=== PATIENT | male | born 1995 | race African-American/Black ===

== ENCOUNTER 2017-01-08 10:39 | Emergency (ER) | payer SELFPAY ==
[~2017-01-08] VITALS: Ht 172.7 cm; Wt 93.0 kg
[~2017-01-08 10:39] MED LIST: PRED50 PO; RANI300T PO
[2017-01-08 10:44] VITALS: BP 133/74; PULSE 65; RESP 14; TEMP 98.2; O2SAT 98
--- NOTE | 2017-01-08 11:09 | PD ---
Physical Exam Time Seen by Provider: 11:08 Narrative 21 y/o male with 2 days chest pain. He also notes hematuria which started today. Vital signs reviewed. Seen at triage desk. Awaiting bed placement. Data Data Last Documented VS Vital Signs Date Time Temp Pulse Resp B/P Pulse Ox O2 Delivery O2 Flow Rate FiO2 01/08/17 10:44 98.2 65 14 133/74 98 MDM Medical Record Reviewed: Yes Supervised Visit with RUDI: Lev Vo Jan 08, 2017 11:08
[2017-01-08 12:56] LABS: BLOOD, URINE NEG (NEG); GLUCOSE,URINE NEG (NEG); KETONE, URINE NEG (NEG); NITRITE,URINE NEG (NEG); PH, URINE 7.5 (5.0-8.5); URINE COLOR LIGHT-YELLOW (YELLW/STRAW)
[2017-01-08 13:10] LABS: COMMENT (UR) CULT NOT INDICATED; CULTURE IF INDICATED CULT NOT INDICATED
[2017-01-08] MEDS ORDERED: SODIUM CHLOR 0.9% 1000 ML INJ 1,000 ML IV ONE (13:45)
[2017-01-08] MEDS ORDERED: SODIUM CHLORIDE 0.9% FLUSH 10 ML FLUSH IVF PRN (13:45)
--- NOTE | 2017-01-08 13:50 | PD ---
HPI Chief Complaint: Chest Pain Time Seen by Provider: 13:39 Travel History International Travel<30 days: No Contact w/Intl Traveler<30days: No Traveled to known affect area: No History of Present Illness HPI Patient is a 21-year-old male who presents to emergency room with complaints of chest pain. Patient reports that he was lying in bed this morning and began to have right-sided sharp and stabbing pain to his chest. Patient reports that the pain feels pleuritic in nature, reports that chest pain was worse with deep inspiration. Patient denies any diaphoresis, nausea or vomiting or radiation of pain. Patient reports the pain is located to his right chest, reports that the pain resolved after 20 minutes on its own. Patient denies any recent illnesses, denies any drug abuse. Patient is a nonsmoker. No family history of early coronary disease or [place]. Patient with no recent travels or trips. Patient with no risk factors for CAD. Denies history of PE or DVT. PFSH Past Medical History Medical History: Denies Significant Hx Diminished Hearing: No Past Surgical History Other Surgery: Yes (cyst removal from throat) Family History Family History: Negative Social History Alcohol Use: No Tobacco Use: No Substance Use: No Allergies-Medications (Allergen,Severity, Reaction): Coded Allergies: No Known Allergies (Unverified , 01/08/17) Reported Meds & Prescriptions Reported Meds & Active Scripts Active No Active Prescriptions or Reported Medications Review of Systems General / Constitutional: No: Fever Eyes: No: Visual changes HENT: No: Headaches Cardiovascular: Positive: Chest Pain or Discomfort Respiratory: Positive: Shortness of Breath Gastrointestinal: No: Abdominal Pain Genitourinary: No: Dysuria Musculoskeletal: No: Pain Skin: No Rash Neurologic: No: Weakness Psychiatric: No: Depression Endocrine: No: Polydipsia Hematologic/Lymphatic: No: Easy Bruising Physical Exam Narrative GENERAL: nad, nontoxic SKIN: Focused skin assessment warm/dry. HEAD: Atraumatic. Normocephalic. EYES: Pupils equal and round. No scleral icterus. No injection or drainage. ENT: No nasal bleeding or discharge. Mucous membranes pink and moist. NECK: Trachea midline. No JVD. CARDIOVASCULAR: Regular rate and rhythm. No murmur appreciated. RESPIRATORY: No accessory muscle use. Clear to auscultation. Breath sounds equal bilaterally. GASTROINTESTINAL: Abdomen soft, non-tender, nondistended. Hepatic and splenic margins not palpable. MUSCULOSKELETAL: No obvious deformities. No clubbing. No cyanosis. No edema. NEUROLOGICAL: Awake and alert. No obvious cranial nerve deficits. Motor grossly within normal limits. Normal speech. PSYCHIATRIC: Appropriate mood and affect; insight and judgment normal. Data Data Last Documented VS Vital Signs Date Time Temp Pulse Resp B/P Pulse Ox O2 Delivery O2 Flow Rate FiO2 01/08/17 14:07 100 Room Air 01/08/17 13:35 52 01/08/17 10:44 98.2 14 Orders Urinalysis - C+S If Indicated (01/08/17 11:09) Electrocardiogram (01/08/17 ) Ckmb (Isoenzyme) Profile (01/08/17 13:45) Complete Blood Count With Diff (01/08/17 13:45) Comprehensive Metabolic Panel (01/08/17 13:45) D-Dimer (01/08/17 13:45) Magnesium (Mg) (01/08/17 13:45) Prothrombin Time / Inr (Pt) (01/08/17 13:45) Act Partial Throm Time (Ptt) (01/08/17 13:45) Troponin I (01/08/17 13:45) Lipase (01/08/17 13:45) Chest, Single Ap (01/08/17 13:45) Ecg Monitoring (01/08/17 13:45) Iv Access Insert/Monitor (01/08/17 13:45) Oximetry (01/08/17 13:45) Sodium Chloride 0.9% Flush (Ns Flush) (01/08/17 13:45) Thyroid Stimulating Hormone (01/08/17 13:45) Sodium Chlor 0.9% 1000 Ml Inj (Ns 1000 M (01/08/17 13:45) Drug Screen, Random Urine (01/08/17 13:57) CKMB (01/08/17 13:50) CKMB% (01/08/17 13:50) Electrocardiogram (01/08/17 ) Labs Laboratory Tests Test 01/08/17 01/08/17 12:25 13:50 Urine Color LIGHT-YELLOW Urine Turbidity CLEAR Urine pH 7.5 Urine Specific [place] 1.014 Urine Protein NEG mg/dL Urine Glucose (UA) NEG mg/dL Urine Ketones NEG mg/dL Urine Occult Blood NEG Urine Nitrite NEG Urine Bilirubin NEG Urine Urobilinogen LESS THAN 2.0 MG/DL Urine Leukocyte Esterase NEG Urine RBC 1 /hpf Urine WBC 2 /hpf Microscopic Urinalysis Comment CULT NOT INDICATED White Blood Count 4.5 TH/MM3 Red Blood Count 5.47 MIL/MM3 Hemoglobin 14.4 GM/DL Hematocrit 44.0 % Mean Corpuscular Volume 80.4 FL Mean Corpuscular Hemoglobin 26.3 PG Mean Corpuscular Hemoglobin 32.7 % Concent Red Cell Distribution Width 13.6 % Platelet Count 199 TH/MM3 Mean Platelet Volume 8.2 FL Neutrophils (%) (Auto) 45.0 % Lymphocytes (%) (Auto) 43.8 % Monocytes (%) (Auto) 7.8 % Eosinophils (%) (Auto) 2.8 % Basophils (%) (Auto) 0.6 % Neutrophils # (Auto) 2.0 TH/MM3 Lymphocytes # (Auto) 2.0 TH/MM3 Monocytes # (Auto) 0.3 TH/MM3 Eosinophils # (Auto) 0.1 TH/MM3 Basophils # (Auto) 0.0 TH/MM3 CBC Comment DIFF FINAL Differential Comment Prothrombin Time 11.0 SEC Prothromb Time International 1.0 RATIO Ratio Activated Partial 29.6 SEC Thromboplast Time D-Dimer Quantitative (PE/DVT) 0.23 MG/L FEU Sodium Level 138 MEQ/L Potassium Level 3.6 MEQ/L Chloride Level 102 MEQ/L Carbon Dioxide Level 30.5 MEQ/L Anion Gap 6 MEQ/L Blood Urea Nitrogen 8 MG/DL Creatinine 1.10 MG/DL Estimat Glomerular Filtration 101 ML/MIN Rate Random Glucose 84 MG/DL Calcium Level 9.1 MG/DL Magnesium Level 2.1 MG/DL Total Bilirubin 0.4 MG/DL Aspartate Amino Transf 22 U/L (AST/SGOT) Alanine Aminotransferase 24 U/L (ALT/SGPT) Alkaline Phosphatase 65 U/L Total Creatine Kinase 218 U/L Creatine Kinase MB 0.8 NG/ML Troponin I LESS THAN 0.02 NG/ML Total Protein 7.8 GM/DL Albumin 4.0 GM/DL Lipase 82 U/L Thyroid Stimulating Hormone 1.310 uIU/ML 3rd Gen [facility] Medical Decision Making Medical Screen Exam Complete: Yes Emergency Medical Condition: Yes Interpretation(s) EKG at 1114: Sinus bradycardia at 51bpm, qt/qtc: 394/370, diffuse st seg elevation - most likely related to early repolarization repeat ekg at 1543: Sinus laci at 47bpm, qt/qtc: 422/383, early repolarization, no change from prior ekg's Vital Signs Date Time Temp Pulse Resp B/P Pulse Ox O2 Delivery O2 Flow Rate FiO2 01/08/17 13:35 52 98 Room Air 01/08/17 10:44 98.2 65 14 133/74 98 Vital Signs Date Time Temp Pulse Resp B/P Pulse Ox O2 Delivery O2 Flow Rate FiO2 01/08/17 14:07 100 Room Air 01/08/17 13:35 52 98 Room Air 01/08/17 10:44 98.2 65 14 133/74 98 Laboratory Tests Test 01/08/17 01/08/17 12:25 13:50 Urine Color LIGHT-YELLOW (YELLW/STRAW) Urine Turbidity CLEAR (CLEAR) Urine pH 7.5 (5.0-8.5) Urine Specific [place] 1.014 (1.002-1.035) Urine Protein NEG mg/dL (NEG-TRACE) Urine Glucose (UA) NEG mg/dL (NEG) Urine Ketones NEG mg/dL (NEG) Urine Occult Blood NEG (NEG) Urine Nitrite NEG (NEG) Urine Bilirubin NEG (NEG) Urine Urobilinogen LESS THAN 2.0 MG/DL (LESS THAN 2.0) Urine Leukocyte Esterase NEG (NEG) Urine RBC 1 /hpf (0-3) Urine WBC 2 /hpf (0-5) Microscopic Urinalysis Comment CULT NOT INDICATED White Blood Count 4.5 TH/MM3 (4.0-11.0) Red Blood Count 5.47 MIL/MM3 (4.50-5.90) Hemoglobin 14.4 GM/DL (13.0-17.0) Hematocrit 44.0 % (39.0-51.0) Mean Corpuscular Volume 80.4 FL (80.0-100.0) Mean Corpuscular Hemoglobin 26.3 PG (27.0-34.0) Mean Corpuscular Hemoglobin 32.7 % Concent (32.0-36.0) Red Cell Distribution Width 13.6 % (11.6-17.2) Platelet Count 199 TH/MM3 (150-450) Mean Platelet Volume 8.2 FL (7.0-11.0) Neutrophils (%) (Auto) 45.0 % (16.0-70.0) Lymphocytes (%) (Auto) 43.8 % (9.0-44.0) Monocytes (%) (Auto) 7.8 % (0.0-8.0) Eosinophils (%) (Auto) 2.8 % (0.0-4.0) Basophils (%) (Auto) 0.6 % (0.0-2.0) Neutrophils # (Auto) 2.0 TH/MM3 (1.8-7.7) Lymphocytes # (Auto) 2.0 TH/MM3 (1.0-4.8) Monocytes # (Auto) 0.3 TH/MM3 (0-0.9) Eosinophils # (Auto) 0.1 TH/MM3 (0-0.4) Basophils # (Auto) 0.0 TH/MM3 (0-0.2) CBC Comment DIFF FINAL Differential Comment Prothrombin Time 11.0 SEC (9.8-11.6) Prothromb Time International 1.0 RATIO Ratio Activated Partial 29.6 SEC Thromboplast Time (24.3-30.1) D-Dimer Quantitative (PE/DVT) 0.23 MG/L FEU (0.00-0.50) Sodium Level 138 MEQ/L (136-145) Potassium Level 3.6 MEQ/L (3.5-5.1) Chloride Level 102 MEQ/L (98-107) Carbon Dioxide Level 30.5 MEQ/L (21.0-32.0) Anion Gap 6 MEQ/L (5-15) Blood Urea Nitrogen 8 MG/DL (7-18) Creatinine 1.10 MG/DL (0.60-1.30) Estimat Glomerular Filtration 101 ML/MIN Rate (>89) Random Glucose 84 MG/DL (74-106) Calcium Level 9.1 MG/DL (8.5-10.1) Magnesium Level 2.1 MG/DL (1.5-2.5) Total Bilirubin 0.4 MG/DL (0.2-1.0) Aspartate Amino Transf 22 U/L (15-37) (AST/SGOT) Alanine Aminotransferase 24 U/L (12-78) (ALT/SGPT) Alkaline Phosphatase 65 U/L (45-117) Total Creatine Kinase 218 U/L (39-308) Creatine Kinase MB 0.8 NG/ML (0.5-3.6) Troponin I LESS THAN 0.02 NG/ML (0.02-0.05) Total Protein 7.8 GM/DL (6.4-8.2) Albumin 4.0 GM/DL (3.4-5.0) Lipase 82 U/L (73-393) Thyroid Stimulating Hormone 1.310 uIU/ML 3rd Gen (0.358-3.740) Last Impressions Chest X-Ray 01/08/17 1345 Signed Impressions: Service Date/Time: Sunday, January 08, 2017 13:49 - CONCLUSION: No acute disease. Barrett Whiteside MD Differential Diagnosis Differential includes ACS, arrhythmia, endocarditis though unlikely as patient denies drug abuse, pericarditis, PE, pneumothorax Narrative Course 21-year-old male who presents to emergency room with complaints of chest pain. Patient reports that chest pain began earlier this morning while in bed, reports that he had a sharp/ stabbing pain to his right chest. Patient reports that the chest pain lasted for about 15-20 minutes and resolved on its own. Reports that he has had similar symptoms in the past, reports that he was told that everything looked fine except for he does have an abnormal-appearing EKG which always says "I am having a heart attack when i'm not having one." Patient with complete resolution of chest pain at this time. Patient denies any drug abuse, denies any recent illnesses, patient asymptomatic. Vital Signs Date Time Temp Pulse Resp B/P Pulse Ox O2 Delivery O2 Flow Rate FiO2 01/08/17 13:35 52 98 Room Air 01/08/17 10:44 98.2 65 14 133/74 98 Vital signs reviewed, vital signs stable. EKG with early repolarization, plan to obtain basic blood work, will obtain one set of cardiac enzymes to rule out etiology for chest plain including but not limited to diagnosis of pericarditis or endocarditis. D-dimer ordered to rule out possible PE. TSH as well as xray of chest ordered as well. Will continue to monitor patient on library monitor Laboratory Tests Test 01/08/17 01/08/17 12:25 13:50 Urine Color LIGHT-YELLOW (YELLW/STRAW) Urine Turbidity CLEAR (CLEAR) Urine pH 7.5 (5.0-8.5) Urine Specific [place] 1.014 (1.002-1.035) Urine Protein NEG mg/dL (NEG-TRACE) Urine Glucose (UA) NEG mg/dL (NEG) Urine Ketones NEG mg/dL (NEG) Urine Occult Blood NEG (NEG) Urine Nitrite NEG (NEG) Urine Bilirubin NEG (NEG) Urine Urobilinogen LESS THAN 2.0 MG/DL (LESS THAN 2.0) Urine Leukocyte Esterase NEG (NEG) Urine RBC 1 /hpf (0-3) Urine WBC 2 /hpf (0-5) Microscopic Urinalysis Comment CULT NOT INDICATED White Blood Count 4.5 TH/MM3 (4.0-11.0) Red Blood Count 5.47 MIL/MM3 (4.50-5.90) Hemoglobin 14.4 GM/DL (13.0-17.0) Hematocrit 44.0 % (39.0-51.0) Mean Corpuscular Volume 80.4 FL (80.0-100.0) Mean Corpuscular Hemoglobin 26.3 PG (27.0-34.0) Mean Corpuscular Hemoglobin 32.7 % Concent (32.0-36.0) Red Cell Distribution Width 13.6 % (11.6-17.2) Platelet Count 199 TH/MM3 (150-450) Mean Platelet Volume 8.2 FL (7.0-11.0) Neutrophils (%) (Auto) 45.0 % (16.0-70.0) Lymphocytes (%) (Auto) 43.8 % (9.0-44.0) Monocytes (%) (Auto) 7.8 % (0.0-8.0) Eosinophils (%) (Auto) 2.8 % (0.0-4.0) Basophils (%) (Auto) 0.6 % (0.0-2.0) Neutrophils # (Auto) 2.0 TH/MM3 (1.8-7.7) Lymphocytes # (Auto) 2.0 TH/MM3 (1.0-4.8) Monocytes # (Auto) 0.3 TH/MM3 (0-0.9) Eosinophils # (Auto) 0.1 TH/MM3 (0-0.4) Basophils # (Auto) 0.0 TH/MM3 (0-0.2) CBC Comment DIFF FINAL Differential Comment Prothrombin Time 11.0 SEC (9.8-11.6) Prothromb Time International 1.0 RATIO Ratio Activated Partial 29.6 SEC Thromboplast Time (24.3-30.1) D-Dimer Quantitative (PE/DVT) 0.23 MG/L FEU (0.00-0.50) Sodium Level 138 MEQ/L (136-145) Potassium Level 3.6 MEQ/L (3.5-5.1) Chloride Level 102 MEQ/L (98-107) Carbon Dioxide Level 30.5 MEQ/L (21.0-32.0) Anion Gap 6 MEQ/L (5-15) Blood Urea Nitrogen 8 MG/DL (7-18) Creatinine 1.10 MG/DL (0.60-1.30) Estimat Glomerular Filtration 101 ML/MIN Rate (>89) Random Glucose 84 MG/DL (74-106) Calcium Level 9.1 MG/DL (8.5-10.1) Magnesium Level 2.1 MG/DL (1.5-2.5) Total Bilirubin 0.4 MG/DL (0.2-1.0) Aspartate Amino Transf 22 U/L (15-37) (AST/SGOT) Alanine Aminotransferase 24 U/L (12-78) (ALT/SGPT) Alkaline Phosphatase 65 U/L (45-117) Total Creatine Kinase 218 U/L (39-308) Creatine Kinase MB 0.8 NG/ML (0.5-3.6) Troponin I LESS THAN 0.02 NG/ML (0.02-0.05) Total Protein 7.8 GM/DL (6.4-8.2) Albumin 4.0 GM/DL (3.4-5.0) Lipase 82 U/L (73-393) Thyroid Stimulating Hormone 1.310 uIU/ML 3rd Gen (0.358-3.740) Last Impressions Chest X-Ray 01/08/17 1345 Signed Impressions: Service Date/Time: Sunday, January 08, 2017 13:49 - CONCLUSION: No acute disease. Barrett Whiteside MD Patient re-evaluated. Patient feeling much better at this time. Patient asymptomatic. Repeat EKG with early repolarization. Patient with a heart score of 0 patient will follow up with his pcp as outpatient and will return to ER as needed. Diagnosis Primary Impression: Chest pain Qualified Code: R07.9 - Chest pain, unspecified type Additional Impression: Costochondritis Patient Instructions: General Instructions Additional Instructions: Please follow-up with your primary care doctor Return to the emergency room as needed Return to the emergency room if symptoms worsen or return Scripts No Active Prescriptions or Reported Meds Disposition: 01 DISCHARGE HOME Condition: Stable Sadia Rizzo DO Jan 08, 2017 13:50
--- NOTE | 2017-01-08 14:05 | RADRPT ---
EXAM DATE/TIME: 01/08/2017 13:49 [place] COMPARISON: No previous studies available for comparison. INDICATIONS : Chest pain for several days worsening today. MEDICAL HISTORY : None. SURGICAL HISTORY : None. ENCOUNTER: Initial ACUITY: 4 - 6 days PAIN SCORE: 10/10 LOCATION: Bilateral upper chest FINDINGS: A single view of the chest demonstrates the lungs to be symmetrically aerated without evidence of mas s, infiltrate or effusion. The cardiomediastinal contours are unremarkable. Osseous structures are intact.CONCLUSION: No acute disease. Barrett Whiteside MD on January 08, 2017 at 14:03 Board Certified Radiologist. This report was verified electronically.
[2017-01-08 14:07] VITALS: O2SAT 100
[2017-01-08 14:17] LABS: BASOPHIL % 0.6 % (0.0-2.0); EOSINOPHIL # 0.1 TH/MM3 (0-0.4); EOSINOPHIL % 2.8 % (0.0-4.0); HEMO FLAGS DIFF FINAL; LYMPH % 43.8 % (9.0-44.0); MEAN CELL VOLUME 80.4 FL (80.0-100.0); MEAN CORPUSCULAR HEMOGLOBIN 26.3 PG (27.0-34.0); MEAN CORPUSCULAR HGB CONC 32.7 % (32.0-36.0); MONO % 7.8 % (0.0-8.0); PLATELET COUNT 199 TH/MM3 (150-450); RED BLOOD COUNT 5.47 MIL/MM3 (4.50-5.90); RED CELL DISTRIBUTION WIDTH 13.6 % (11.6-17.2); WHITE BLOOD COUNT 4.5 TH/MM3 (4.0-11.0)
[2017-01-08 14:29] LABS: APTT (PATIENT) 29.6 SEC (24.3-30.1)
[2017-01-08 14:32] LABS: ALT (GPT) 24 U/L (12-78); ANION GAP 6 MEQ/L (5-15); AST (GOT) 22 U/L (15-37); BICARBONATE 30.5 MEQ/L (21.0-32.0); BLOOD UREA NITROGEN 8 MG/DL (7-18); CHLORIDE 102 MEQ/L (98-107); GLOMERULAR FILTRATION RATE 101 ML/MIN (>89); MAGNESIUM 2.1 MG/DL (1.5-2.5); POTASSIUM 3.6 MEQ/L (3.5-5.1); SODIUM (NA) 138 MEQ/L (136-145)
[2017-01-08 14:42] LABS: ALKALINE PHOSPHATASE 65 U/L (45-117); CREATINE KINASE 218 U/L (39-308); TOTAL BILIRUBIN ADULT 0.4 MG/DL (0.2-1.0)
[2017-01-08 14:55] LABS: CKMB 0.8 NG/ML (0.5-3.6)
--- NOTE | 2017-01-09 08:30 | EKG ---
Date Performed: 01/08/2017 Time Performed: 15:43:03 PTAGE: 21 years EKG: SINUS BRADYCARDIA EARLY REPOLARIZATION BORDERLINE ECG NO PREVIOUS TRACING DOCTOR: Nato Cooney Interpretating Date/Time 01/09/2017 08:27:42
--- NOTE | 2017-01-09 08:40 | EKG ---
Date Performed: 01/08/2017 Time Performed: 11:14:19 PTAGE: 21 years EKG: SINUS BRADYCARDIA EARLY REPOLARIZATION BORDERLINE ECG NO PREVIOUS TRACING DOCTOR: Nato Cooney Interpretating Date/Time 01/09/2017 08:34:02
== END 2017-01-08 16:20 | disposition home or self-care (01) ==
LOC: NEPD 10:39
DX: M94.0 Chondrocostal junction syndrome [Tietze] (principal); R07.9 Chest pain, unspecified
CPT/HCPCS: 71010; 80053; 80307; 81001; 82550; 82552; 83690; 83735; 84443; 84484; 85025; 85379; 85610; 85730; 93005; 96360; 99285; J7030

== ENCOUNTER 2017-10-28 08:25 | Emergency (ER) | payer SELFPAY ==
[~2017-10-28] VITALS: Ht 175.3 cm; Wt 100.0 kg
[2017-10-28 08:28] VITALS: BP 133/64; PULSE 88; RESP 16; TEMP 99.6; O2SAT 97
[2017-10-28] MEDS ORDERED: AUGM875T3 PO (09:28)
--- NOTE | 2017-10-28 09:29 | PD ---
HPI Chief Complaint: ENT Complaint Time Seen by Provider: 09:12 Travel History International Travel<30 days: No Contact w/Intl Traveler<30days: No Traveled to known affect area: No History of Present Illness HPI Patient is a 22-year-old male who presents the emergency room complaints of sore throat. Patient reports that he has had sore throat for the past 5 days, reports that it hurts when he swallows but he is able to swallow. Reports that nothing makes the symptoms better or worse. Reports no sick contacts. Patient denies any fever chills, denies any cough or congestion. Patient with no other complaints at this time. [facility] Past Medical History Medical History: Denies Significant Hx Diminished Hearing: No Past Surgical History Other Surgery: Yes (cyst removal from throat) Social History Alcohol Use: No Tobacco Use: No Substance Use: No Allergies-Medications (Allergen,Severity, Reaction): Coded Allergies: No Known Allergies (Unverified , 01/08/17) Reported Meds & Prescriptions Reported Meds & Active Scripts Active No Active Prescriptions or Reported Medications Review of Systems General / Constitutional: No: Fever Eyes: No: Visual changes HENT: Positive: Sore Throat, No: Headaches, Neck Stiffness, Neck Pain Cardiovascular: No: Chest Pain or Discomfort Respiratory: No: Cough, Shortness of Breath, Wheezing Gastrointestinal: No: Abdominal Pain Genitourinary: No: Dysuria Musculoskeletal: No: Pain Skin: No Rash Neurologic: No: Weakness Psychiatric: No: Depression Endocrine: No: Polydipsia Hematologic/Lymphatic: No: Easy Bruising Physical Exam Narrative GENERAL: Well-nourished, well-developed patient. SKIN: Focused skin assessment warm/dry. HEAD: Normocephalic. EYES: No scleral icterus. No injection or drainage. NECK: Supple, trachea midline. No JVD, positive cervical lymphadenopathy. ENT: Patient with bilateral pharyngitis, patient with pustules to the right posterior tonsils, patient with no airway compromise, patient is maintaining his airway, no drooling appreciated, uvula is midline and patent, there is no trismus, patient is talking in full sentences. CARDIOVASCULAR: Regular rate and rhythm without murmurs, gallops, or rubs. RESPIRATORY: Breath sounds equal bilaterally. No accessory muscle use. GASTROINTESTINAL: Abdomen soft, non-tender, nondistended. MUSCULOSKELETAL: No cyanosis, or edema. BACK: Nontender without obvious deformity. No CVA tenderness. Data Data Last Documented VS Vital Signs Date Time Temp Pulse Resp B/P (MAP) Pulse Ox O2 Delivery O2 Flow Rate FiO2 10/28/17 08:28 99.6 88 16 133/64 (87) 97 Orders Orders Amoxicil-Clavulanate (Augmentin) (10/28/17 09:30) MDM Medical Decision Making Medical Screen Exam Complete: Yes Emergency Medical Condition: Yes Medical Record Reviewed: Yes Interpretation(s) Vital Signs Date Time Temp Pulse Resp B/P (MAP) Pulse Ox O2 Delivery O2 Flow Rate FiO2 10/28/17 08:28 99.6 88 16 133/64 (87) 97 Differential Diagnosis Viral syndrome, pharyngitis, tonsillitis Narrative Course Patient is a 22-year-old male who presents the emergency room complaints of sore throat for the past 5 days. Patient appears to have tonsillitis, plan to start him on Augmentin. Signs and symptoms of when to return to the emergency room was reviewed with patient in detail. Diagnosis Primary Impression: Tonsillitis Patient Instructions: General Instructions Departure Forms: School Release, Return to School Date: October 30, 2017 Tests/Procedures Additional Instructions: Please follow up with your primary care doctor in 2-3 days Return to the ER if symptoms worsen or progress Return to the ER as needed Please take all antibiotics as prescribed Med/Other Pt SpecificInfo: Prescription(s) given Scripts Amoxicillin-Clavulanate (Augmentin) 875-125 Mg Tab 1 TAB PO BID for Infection, #20 TAB 0 Refills Prov: Sadia Rizzo DO 10/28/17 Disposition: 01 DISCHARGE HOME Condition: Stable Sadia Rizzo DO October 28, 2017 09:29
[2017-10-28] MEDS ORDERED: KETOROLAC TROMETHAMINE 60 MG/2 ML (IM) VIAL IM ONE (09:30)
[2017-10-28] MEDS ORDERED: AMOXICILLIN/CLAVULANATE K 875 MG TAB PO ONE (09:30)
[2017-10-28] MEDS ORDERED: DEXAMETHASONE SOD PHOS 20 MG/5 ML VIAL IM ONE (09:30)
== END 2017-10-28 10:10 | disposition home or self-care (01) ==
LOC: NEPD 08:25
DX: J03.90 Acute tonsillitis, unspecified (principal)
CPT/HCPCS: 96372; 99283; J1100; J1885